=== PATIENT | male | born 1970 | race Caucasian/White ===

== ENCOUNTER 2025-02-18 08:13 | Emergency (ER) | payer BC, SELFPAY ==
[2025-02-18 08:15] VITALS: BP 144/97
[2025-02-18 09:01] VITALS: BMI 32.3
[2025-02-18 09:03] VITALS: BP 143/70
--- NOTE | 2025-02-18 09:18 | EDRN ---
Herb BARNHART in room w/ pt.
--- NOTE | 2025-02-18 09:39 | ED.GENMED ---
History of Present Illness
General
Chief Complaint: Back Pain
Source: patient
Exam Limitations: none
Time Seen by Provider: 02/18/25 09:09
Nursing documentation reviewed up to this point in time: agreed with
History of Present Illness
History of Present Illness:
54-year-old male history of hypertension hyperlipidemia presenting to the emergency department today with concerns of low back pain over the past 3 days that started when he was tying his shoes felt a very mild 'twinge' at the time but was not
severe pain pain is seemingly been worsening over the past few days. Was started on Flexeril 2 days ago from the urgent care. Denies any numbness weakness or changes in bowel movements. Denies similar symptoms in the past.
Review of Systems
Review of Systems
Allergies reviewed?: Yes
All Other Systems: ROS reviewed and negative except as documented in HPI and ROS
Phy Exam
Physical Exam
Physical Exam:
GENERAL: Alert , in no apparent distress
EYE: pupils equal and reactive
NECK: Supple, no significant adenopathy.
ENT: o/p clr, mmm.
CARDIAC: Regular rate and rhythm .
LUNGS: Clear breath sounds bilaterally, no acute respiratory distress, no wheezes/rales/rhonchi
ABDOMEN: Soft, without focal tenderness, no r/g, no cvat
NEUROLOGICAL: Alert and oriented, no focal neuro deficits
SKIN: Warm and dry, skin intact.
MUSCULOSKELETAL: No edema, well perfused.
PSYCH: Normal and appropriate interaction.
Course
Orders/Labs/Results
Orders:
Orders
02/18/25 09:32
Dexamethasone [Decadron] 10 mg PO NOW STA
Ketorolac [Toradol] 30 mg IM NOW STA
Lumbar Spine, 2 or 3 View [CR Lumbar Spine 2 Or 3 Views] Urgent
Comment:
Reason For Exam: low back pain new x3 days
Vital Signs
Initial and Last Documented VS:
Initial Vital Signs
Temp Pulse Resp BP Pulse Ox
97.6 F 61 16 144/97 98
02/18/25 08:15 02/18/25 08:15 02/18/25 08:15 02/18/25 08:15 02/18/25 08:15
Last Documented Vital Signs
Temp Pulse Resp BP Pulse Ox
97.6 F 64 16 143/70 98
02/18/25 08:15 02/18/25 09:03 02/18/25 09:03 02/18/25 09:03 02/18/25 09:40
MDM/Problems Addressed
MDM/Problems Addressed:
54-year-old male presenting to the emergency department with concerns of low back pain after tying his shoes 4 days ago. Here normal neurologic evaluation. No red flag symptoms of low back pain. Patient with likely mechanical pain. Plan for
symptomatic treatment. Symptoms improved after treatment here. Able to ambulate well. No red flag symptoms stable for close outpatient follow-up. Return precautions given.
*Pulse Oximetry
SaO2: 98
Oxygen Mode of Delivery: Room air
Patient hypoxic: no (98)
*Critical Care Note
Total Time (30-74mins, 75-104mins- exclusive of procedures): Not Applicable
ED Attending Note
-
Portions of this chart may have been created with voice recognition software.� Occasional wrong word or��sound alike� substitutions may have occurred due to the inherent limitations of voice recognition software.
Discharge Plan
Departure
Patient Disposition: Home (Routine Discharge)
Date of Disposition: 02/18/25
Time of Disposition: 11:15
Patient with high blood pressure during this ER visit?: No
Condition: Good
Covid-19: Not Applicable
Discharge Problem:
Low back pain
Instructions: Low Back Pain (DC)
Prescriptions:
New
prednisone 20 mg tablet
40 mg PO DAILY 4 Days Qty: 8 0RF
Referrals:
Esteban Bailey MD [Active, Anesthesiology] - Follow up in 5-7 days
Amie Yun CRNP [Family Provider, General]
Activity Restrictions/Additional Instructions:
You came to the emergency department today with concerns of low back pain. Please feel closely with the back doctor and take the steroid as well as Motrin and Tylenol to help with symptoms. Return for any worsening, new or concerning symptoms.
Interventions
Interventions:
*Risk Screen - Suicide Last Done: 02/18/25 09:02
*General Assessment Last Done: 02/18/25 08:15
*Neglect/Abuse Screening Last Done: 02/18/25 09:02
*ED- Fall Risk Assessment Last Done: 02/18/25 09:01
*ED COVID-19 Vaccine History Last Done: 02/18/25 08:15
ED-Musculoskeletal Assessment Last Done: 02/18/25 09:02
Discharge Date and Time
Print Language: ESTONIAN
[2025-02-18] MEDS: DECADRON 10 MG PO (09:45)
[2025-02-18] MEDS: TORADOL 30 MG IM (09:45)
[2025-02-18 11:20] VITALS: BP 133/84
== END 2025-02-18 11:30 | disposition home or self-care (01) ==
LOC: EMR 08:13
PROVIDERS: EMERGENCY PHYSICIAN Emergency Medicine; FAMILY PHYSICIAN Nurse Practitioner Adult Health
DX: M54.50 Low back pain, unspecified (principal); E78.5 Hyperlipidemia, unspecified; I10 Essential (primary) hypertension
CPT/HCPCS: 96372; 99284; 72100